=== PATIENT | male | born 1975 | race African-American/Black ===

== ENCOUNTER 2018-11-16 22:08 | Emergency (ER) | payer MEDICAID ==
[~2018-11-16] VITALS: Ht 180.3 cm; Wt 92.0 kg
[2018-11-17] MEDS ORDERED: SODIUM CHLORIDE 0.9% 1,000 ML IV ONE ×2 (01:04)
[2018-11-17] MEDS ORDERED: CLINDAMYCIN 600 MG in DEXTROSE 5% WATER 50 ML IV ONE (01:15)
[2018-11-17 01:44] LABS: EOSINOPHILS % 4.1 % (0.0-5.0); HEMATOCRIT. 40.2 % (42.0-52.0); HEMOGLOBIN. 13.4 g/dL (14.0-18.0); LYMPHOCYTES % 39.9 % (20.0-50.0); MEAN CORPUSCULAR HEMOGLOBIN 29.4 pg (28.0-32.0); MEAN CORPUSCULAR VOLUME 88.1 fL (80.0-94.0); MEAN PLATELET VOLUME 7.7 fl (7.4-10.4); MONOCYTES % 5.1 % (2.0-8.0); NEUTROPHILS % 49.9 % (40.0-76.0); PLATELET 244 x1000/uL (130-400); RED BLOOD CELL COUNT 4.56 mill/uL (4.7-6.1); RED CELL DISTRIBUTION WIDTH 13.3 % (11.6-14.6)
[2018-11-17] MEDS ORDERED: CLINDAMYCIN 600 MG in SODIUM CHLORIDE 0.9% 50 ML IV NR (01:45)
[2018-11-17 01:52] LABS: CHLORIDE 109 mEq/L (98-107)
[2018-11-17 01:58] LABS: ETHANOL BLOOD < 10 mg/dL
[2018-11-17 02:03] LABS: *AMPHETAMINES SCREEN URINE PRESUMTIVE POSITIVE (NEGATIVE); *BARBITURATES SCREEN URINE NEGATIVE (NEGATIVE); *BENZODIAZEPINES SCREEN URINE NEGATIVE (NEGATIVE)
[2018-11-17 02:04] LABS: *COCAINE SCREEN URINE NEGATIVE (NEGATIVE); CANNABINOID URINE SCREEN PRESUMTIVE POSITIVE (NEGATIVE); METHADONE URINE SCREEN NEGATIVE (NEGATIVE); OPIATES URINE SCREEN NEGATIVE (NEGATIVE); PHENCYCLIDINE URINE SCREEN NEGATIVE (NEGATIVE)
[2018-11-17] MEDS ORDERED: NALOXONE HCL 0.4 MG/ML 1ML VIAL IV NR (02:12)
[2018-11-17 05:18] VITALS: BP 110/58
== END 2018-11-17 05:40 | disposition home or self-care (01) ==
LOC: ER 22:08
DX: L03.012 Cellulitis of left finger (principal); K72.90 Hepatic failure, unspecified without coma; Z98.890 Other specified postprocedural states
CPT/HCPCS: 36415; 70450; 71045; 73130; 80053; 80305; 80320; 82140; 83605; 85025; 87040; 96365; 96375; 99284; J2310; J3490; J7030; Z7610; J7060; G0480

== ENCOUNTER 2018-12-14 15:30 | Emergency (ER) | payer MEDICAID ==
[~2018-12-14] VITALS: Ht 180.3 cm; Wt 81.8 kg
[2018-12-14 23:48] VITALS: BP 126/81
== END 2018-12-14 23:49 | disposition home or self-care (01) ==
LOC: ER 15:36
DX: S62.397A Other fracture of fifth metacarpal bone, left hand, initial encounter for closed fracture (principal); X58.XXXA Exposure to other specified factors, initial encounter; Y93.9 Activity, unspecified; Y92.9 Unspecified place or not applicable
CPT/HCPCS: 29125; 73130; 99283; A4565

== ENCOUNTER 2019-06-05 07:56 | Emergency (ER) | payer MEDICAID ==
[~2019-06-05] VITALS: Ht 172.7 cm; Wt 100.0 kg
[2019-06-05] MEDS ORDERED: SODIUM CHLORIDE 0.9% 1,000 ML IV ONE (08:12)
[2019-06-05] MEDS ORDERED: KETOROLAC 30MG/ML VIAL IV STA (08:12)
[2019-06-05] MEDS ORDERED: LEVETIRACETAM 1000MG/100ML 100 ML IV ONE (08:15)
[2019-06-05 09:12] LABS: CHLORIDE 106 mEq/L (98-107)
[2019-06-05 09:13] LABS: BASOPHILS % 0.4 % (0.0-2.0); EOSINOPHILS % 4.3 % (0.0-5.0); HEMOGLOBIN. 16.4 g/dL (14.0-18.0); LYMPHOCYTES % 25.9 % (20.0-50.0); MEAN PLATELET VOLUME 7.6 fl (7.4-10.4); MONOCYTES % 4.5 % (2.0-8.0); NEUTROPHILS % 64.9 % (40.0-76.0); PLATELET 263 x1000/uL (130-400); RED BLOOD CELL COUNT 5.45 mill/uL (4.7-6.1); RED CELL DISTRIBUTION WIDTH 13.5 % (11.6-14.6)
[2019-06-05 09:16] LABS: ETHANOL BLOOD < 10 mg/dL
[2019-06-05 11:59] VITALS: BP 135/88
== END 2019-06-05 12:00 | disposition home or self-care (01) ==
LOC: ER 08:14
DX: R56.9 Unspecified convulsions (principal); M25.512 Pain in left shoulder; F12.10 Cannabis abuse, uncomplicated
CPT/HCPCS: 36415; 70450; 71045; 73030; 80053; 80320; 85025; 96365; 96375; 99284; J1885; J1953; J7030; G0480

== ENCOUNTER 2019-08-27 07:47 | Emergency (ER) | payer MEDICAID ==
[~2019-08-27] VITALS: Ht 177.8 cm; Wt 86.0 kg
[2019-08-27 07:54] VITALS: BP 138/75
[2019-08-27] MEDS ORDERED: IBUPROFEN 600MG TABLET PO ONE (08:30)
== END 2019-08-27 09:51 | disposition home or self-care (01) ==
LOC: ER 07:53
DX: S69.81XA Other specified injuries of right wrist, hand and finger(s), initial encounter (principal); F12.10 Cannabis abuse, uncomplicated; Y04.0XXA Assault by unarmed brawl or fight, initial encounter; Y93.89 Activity, other specified; Y92.89 Other specified places as the place of occurrence of the external cause
CPT/HCPCS: 73110; 73130; 99283; Z7610

== ENCOUNTER 2019-10-17 07:30 | Emergency (ER) | payer MEDICAID ==
[~2019-10-17] VITALS: Ht 177.8 cm; Wt 82.0 kg
[2019-10-17 07:36] VITALS: BP 136/94
== END 2019-10-17 09:16 | disposition home or self-care (01) ==
LOC: ER 07:43
DX: M79.641 Pain in right hand (principal); X58.XXXA Exposure to other specified factors, initial encounter; Y93.9 Activity, unspecified; Y92.9 Unspecified place or not applicable
CPT/HCPCS: 73120; 99283

== ENCOUNTER 2020-11-03 11:59 | Emergency (ER) | payer MEDICAID, OTHER ==
[~2020-11-03] VITALS: Ht 180.3 cm; Wt 90.9 kg
[2020-11-03] MEDS ORDERED: IBUPROFEN 600MG TABLET PO ONE (12:30)
[2020-11-03] MEDS ORDERED: BACITRACIN ZINC OINT UDPKT TOP ONE (12:30)
[2020-11-03] MEDS ORDERED: LIDOCAINE HCL/PF 1% 10 MG/ML 5ML VIAL IJ ONE (12:30)
[2020-11-03] MEDS ORDERED: IBUP-2028 MT (15:07)
[2020-11-03 15:55] VITALS: BP 142/79
== END 2020-11-03 15:58 | disposition home or self-care (01) ==
LOC: ER 11:59
DX: S01.411A Laceration without foreign body of right cheek and temporomandibular area, initial encounter (principal); S62.667A Nondisplaced fracture of distal phalanx of left little finger, initial encounter for closed fracture; F43.10 Post-traumatic stress disorder, unspecified; F12.10 Cannabis abuse, uncomplicated; V16.0XXA Pedal cycle driver injured in collision with other nonmotor vehicle in nontraffic accident, initial encounter; Y93.89 Activity, other specified; Y92.488 Other paved roadways as the place of occurrence of the external cause
CPT/HCPCS: 12013; 72170; 73130; 99284; A4217; J3490; Z7610

== ENCOUNTER 2020-11-11 17:16 | Emergency (ER) | payer SELFPAY ==
[~2020-11-11] VITALS: Ht 180.3 cm; Wt 91.0 kg
[~2020-11-11 17:16] MED LIST: IBUP-2028 MT
[2020-11-11 18:18] VITALS: BP 127/83
== END 2020-11-11 18:19 | disposition home or self-care (01) ==
LOC: ER 17:16
DX: Z48.02 Encounter for removal of sutures (principal); Z98.890 Other specified postprocedural states; F12.10 Cannabis abuse, uncomplicated
CPT/HCPCS: 99281

== ENCOUNTER 2021-10-05 09:58 | Emergency (ER) | payer OTHER ==
[~2021-10-05] VITALS: Ht 182.9 cm; Wt 91.0 kg
[2021-10-05 10:10] VITALS: BP 143/93
== END 2021-10-05 11:54 | disposition home or self-care (01) ==
LOC: ER 10:08
DX: S43.102A Unspecified dislocation of left acromioclavicular joint, initial encounter (principal); F12.10 Cannabis abuse, uncomplicated; X58.XXXA Exposure to other specified factors, initial encounter; Y93.89 Activity, other specified; Y92.89 Other specified places as the place of occurrence of the external cause
CPT/HCPCS: 73030; 99283

== ENCOUNTER 2022-01-18 12:23 | Emergency (ER) | payer OTHER ==
[~2022-01-18] VITALS: Ht 180.3 cm; Wt 73.0 kg
[2022-01-18] MEDS ORDERED: TETANUS, DIPHTHERIA, PERTUSSIS VAC/PF 0.5ML (>10YR OLD) IM ONE (13:00)
[2022-01-18] MEDS ORDERED: IBUPROFEN 600MG TABLET PO ONE (13:00)
[2022-01-18] MEDS ORDERED: LIDOCAINE HCL/PF 1% 10 MG/ML 5ML VIAL INFIL ONE (13:45)
[2022-01-18] MEDS ORDERED: BACITRACIN ZINC OINT UDPKT TOP ONE (13:45)
[2022-01-18] MEDS ORDERED: CEFAZOLIN 1000MG PREMIX 50 ML IV ONE (14:00)
[2022-01-18 14:30] VITALS: BP 145/75
[2022-01-18] MEDS ORDERED: CEFAZOLIN 1000MG PREMIX 50 ML IV NR (17:30)
== END 2022-01-18 19:28 | disposition left against medical advice (07) ==
LOC: ER 12:23 → CANBEDREQ 19:59
DX: S62.647B Nondisplaced fracture of proximal phalanx of left little finger, initial encounter for open fracture (principal); F17.210 Nicotine dependence, cigarettes, uncomplicated; F12.10 Cannabis abuse, uncomplicated; F99 Mental disorder, not otherwise specified; W25.XXXA Contact with sharp glass, initial encounter; Y93.89 Activity, other specified; Y92.89 Other specified places as the place of occurrence of the external cause
CPT/HCPCS: 12004; 73130; 90471; 90715; 96365; 99284; J0690; J3490

== ENCOUNTER 2022-04-30 18:21 | Emergency (ER) | payer SELFPAY ==
[~2022-04-30] VITALS: Ht 167.6 cm; Wt 75.0 kg
[2022-04-30 18:28] VITALS: BP 126/81
== END 2022-04-30 22:56 | disposition left against medical advice (07) ==
LOC: ER 18:21
DX: Z53.21 Procedure and treatment not carried out due to patient leaving prior to being seen by health care provider (principal)

== ENCOUNTER 2022-05-10 02:32 | Emergency (ER) | payer SELFPAY ==
[~2022-05-10] VITALS: Ht 175.3 cm; Wt 75.0 kg
[2022-05-10] MEDS ORDERED: IBUPROFEN 600MG TABLET PO ONE (03:15)
[2022-05-10] MEDS ORDERED: T3 PO (04:21)
[2022-05-10] MEDS ORDERED: CEPH500C2 MT (04:21)
[2022-05-10] MEDS ORDERED: IBUP-2029 MT (04:21)
[2022-05-10 04:59] VITALS: BP 123/87
== END 2022-05-10 05:12 | disposition home or self-care (01) ==
LOC: ER 02:32
DX: S82.391A Other fracture of lower end of right tibia, initial encounter for closed fracture (principal); L03.115 Cellulitis of right lower limb; F12.10 Cannabis abuse, uncomplicated; F17.210 Nicotine dependence, cigarettes, uncomplicated; W17.89XA Other fall from one level to another, initial encounter; Y93.89 Activity, other specified; Y92.411 Interstate highway as the place of occurrence of the external cause
CPT/HCPCS: 73030; 73560; 73610; 99284; Z7610

== ENCOUNTER 2022-12-20 19:04 | Emergency (ER) | payer OTHER ==
[~2022-12-20] VITALS: Ht 182.9 cm; Wt 85.0 kg
[~2022-12-20 19:04] MED LIST changes: +CEPH500C2 MT; +IBUP-2029 MT; +T3 PO
[2022-12-20 19:33] VITALS: BP 149/84
[2022-12-20] MEDS ORDERED: ACETAMINOPHEN 325MG TABLET PO ONE (20:00)
== END 2022-12-20 21:10 | disposition home or self-care (01) ==
LOC: ER 19:04
DX: M25.571 Pain in right ankle and joints of right foot (principal); F12.10 Cannabis abuse, uncomplicated
CPT/HCPCS: 73610; 99283; Z7610